=== PATIENT | female | born 1985 ===

== ENCOUNTER 2018-09-13 21:53 | Inpatient (IN) ==
[2018-09-13] MEDS ORDERED: MEPERIDINE 50 MG/1 ML VIAL IV PRN (22:01)
[2018-09-13] MEDS ORDERED: ONDANSETRON 4 MG/2 ML VIAL IV PRN (22:01)
[2018-09-13 22:36] LABS: Basophils % 0.3 % (0.0-0.8); Eosinophils # 0.1 10*3/uL (0.0-0.87); Eosinophils % 0.7 % (0.00-10.9); Hematocrit 30.6 VOL% (35.7-47.0); Hemoglobin 9.5 GM/DL (12.0-16.0); Immature Granulocytes % 0.7 %; Immature Granulocytes Absolute 0.06 #; Lymphocytes # 1.7 10*3/uL (1.4-4.0); Lymphocytes % 19.1 % (21.3-54.2); Mean Corpuscular Hemoglobin 25 PG (27-34); Mean Corpuscular Volume 79.5 FL (87-102); Mean Platelet Volume 12.3 FL (9.6-12.0); Monocytes # 0.6 10*3/uL (0.11-0.8); Monocytes % 6.7 % (1.7-12.7); Neutrophils # 6.5 10*3/uL (1.4-7.4); Neutrophils % 72.5 % (38.7-73.9); Platelet Count 296 T/CUMM (130-400); Red Blood Count 3.85 MC/CUMM (3.8-5.5); Red Cell Distribution Width 15.1 % (9.3-17.3); White Blood Count 8.9 T/CUMM (4-12)
[2018-09-13] MEDS ORDERED: AMPICILLIN INJ 2,000 MG in SODIUM CHLORIDE 0.9% 100 ML IV ONE (22:48)
[2018-09-13 22:51] LABS: Alanine Aminotransferase 12 U/L (13-56); Albumin 2.6 G/DL (3.4-5.0); Alkaline Phosphatase 145 U/L (45-117); Aspartate Amino Transferase 13 U/L (0-37); Bilirubin,Total < 0.39 MG/DL (0.2-1.0); Blood Urea Nitrogen 6 MG/DL (7-18); Glucose 93 MG/DL (74-106); Osmolality,Calculated 276.4 MOS/KG (273-304); Potassium 3.7 MMOL/L (3.5-5.1); Sodium 140 MMOL/L (136-145); Total Protein 7.3 G/DL (6.4-8.3)
[2018-09-13] MEDS: LACTATED RINGERS 1,000 ML IV SCH (23:18)
[2018-09-13] MEDS: AMPICILLIN INJ 2,000 MG in SODIUM CHLORIDE 0.9% 100 ML IV SCH (23:19)
[2018-09-13] MEDS ORDERED: AZITHROMYCIN 250 MG TABLET PO ONE (23:30)
[2018-09-13] MEDS ORDERED: AZITHROMYCIN INJ 1,000 MG in SODIUM CHLORIDE 0.9% 250 ML IV ONE (23:46)
[2018-09-14] MEDS ORDERED: AZITHROMYCIN 250 MG TABLET PO ONE (02:00)
[2018-09-14] MEDS: LACTATED RINGERS 1,000 ML IV SCH ×2 (02:22→08:02)
[2018-09-14] MEDS: AMPICILLIN INJ 2,000 MG in SODIUM CHLORIDE 0.9% 100 ML IV SCH (05:02)
[2018-09-14] MEDS ORDERED: diphenhydrAMINE 50 MG/1 ML VIAL IV PRN (07:21)
[2018-09-14] MEDS ORDERED: ePHEDrine 50 MG/ML AMP IV PRN (07:21)
[2018-09-14] MEDS ORDERED: NALOXONE 0.4 MG/ML VIAL IV PRN (07:21)
[2018-09-14] MEDS ORDERED: PROMETHAZINE 25 MG/1 ML VIAL IM ONE (07:21)
[2018-09-14] MEDS ORDERED: hydrOXYzine HCL 25 MG/1 ML VIAL IM PRN (07:21)
[2018-09-14] MEDS ORDERED: FAMOTIDINE 20 MG/2 ML VIAL IV ONE (07:21)
[2018-09-14] MEDS ORDERED: CITRIC ACID/SODIUM CITRATE 30 ML UDCUP PO ONE (07:21)
[2018-09-14] MEDS ORDERED: OXYTOCIN/LR 20 UNIT/1,000 ML BAG IV ONE (07:25)
[2018-09-14] MEDS ORDERED: fentaNYL 2 MCG/ROPIV 0.2% EPID 100 ML EPIDURAL SCH (07:30)
[2018-09-14] MEDS ORDERED: OXYTOCIN/LR 20 UNIT/1,000 ML BAG IV SCH (07:30)
[2018-09-14] MEDS ORDERED: CARBOPROST TROMETHAMINE 250 MCG/ML AMP IM ONE ×2 (08:22→08:26)
[2018-09-14] MEDS ORDERED: OXYTOCIN/LR 30 UNIT/1,000 ML BAG IV ONE (08:24)
[2018-09-14] MEDS: IBUPROFEN 800 MG TABLET PO PRN (12:47)
[2018-09-15 05:04] LABS: Basophils # 0.1 10*3/uL (0.0-0.2); Basophils % 0.5 % (0.0-0.8); Eosinophils # 0.1 10*3/uL (0.0-0.87); Eosinophils % 0.5 % (0.00-10.9); Hematocrit 26.3 VOL% (35.7-47.0); Hemoglobin 8.1 GM/DL (12.0-16.0); Immature Granulocytes % 0.6 %; Immature Granulocytes Absolute 0.06 #; Lymphocytes # 2.1 10*3/uL (1.4-4.0); Lymphocytes % 19.7 % (21.3-54.2); Mean Corpuscular HGB Conc 30.8 GM/DL (32-36); Mean Corpuscular Hemoglobin 24 PG (27-34); Mean Corpuscular Volume 79.2 FL (87-102); Mean Platelet Volume 12.2 FL (9.6-12.0); Monocytes # 0.7 10*3/uL (0.11-0.8); Monocytes % 6.5 % (1.7-12.7); Neutrophils # 7.7 10*3/uL (1.4-7.4); Neutrophils % 72.2 % (38.7-73.9); Platelet Count 241 T/CUMM (130-400); Red Blood Count 3.32 MC/CUMM (3.8-5.5); Red Cell Distribution Width 14.9 % (9.3-17.3); White Blood Count 10.7 T/CUMM (4-12)
[2018-09-15] MEDS: FERROUS SULFATE 325 MG TABLET PO SCH ×2 (08:13→20:59)
[2018-09-15] MEDS: DOCUSATE SODIUM 100 MG CAPSULE PO SCH ×2 (08:13→20:59)
[2018-09-15] MEDS: IBUPROFEN 800 MG TABLET PO PRN (20:59)
[2018-09-15 22:25] LABS: HIV Antigen/Antibody Result Nonreactive (Nonreactive); Hepatitis B Surface Ab Result Negative
[2018-09-16 08:22] VITALS: BP 117/92
[2018-09-16] MEDS: FERROUS SULFATE 325 MG TABLET PO SCH (09:26)
[2018-09-16] MEDS: DOCUSATE SODIUM 100 MG CAPSULE PO SCH (09:26)
== END 2018-09-16 11:25 | disposition home or self-care (01) | DRG 560 ==
LOC: N.LDOUT 21:53 → N.LD 21:54 → N.OB 09-14 11:39
PROVIDERS: ADMIT Obstetrics & Gynecology; ATTEND Obstetrics & Gynecology

== ENCOUNTER 2018-09-22 08:42 | Inpatient (IN) ==
[2018-09-22] MEDS ORDERED: SODIUM CHLORIDE 0.9% 2,000 ML IV STA (09:06)
[2018-09-22 09:23] LABS: Basophils # 0.1 10*3/uL (0.0-0.2); Basophils % 0.4 % (0.0-0.8); Eosinophils # 0.1 10*3/uL (0.0-0.87); Eosinophils % 0.5 % (0.00-10.9); Hemoglobin 9.9 GM/DL (12.0-16.0); Immature Granulocytes % 0.9 %; Immature Granulocytes Absolute 0.19 #; Lymphocytes # 2.5 10*3/uL (1.4-4.0); Lymphocytes % 12.3 % (21.3-54.2); Mean Corpuscular Hemoglobin 25 PG (27-34); Mean Corpuscular Volume 81.9 FL (87-102); Mean Platelet Volume 11.1 FL (9.6-12.0); Monocytes # 0.9 10*3/uL (0.11-0.8); Monocytes % 4.3 % (1.7-12.7); Neutrophils # 16.5 10*3/uL (1.4-7.4); Neutrophils % 81.6 % (38.7-73.9); Platelet Count 319 T/CUMM (130-400); Red Blood Count 4.03 MC/CUMM (3.8-5.5); Red Cell Distribution Width 15.3 % (9.3-17.3); White Blood Count 20.2 T/CUMM (4-12)
[2018-09-22 09:32] LABS: INR 1.1; PT Patient Result 11.8 SECS; Partial Thromboplastin Time 23.3 SECS (0-40)
[2018-09-22 09:50] LABS: Albumin 3.1 G/DL (3.4-5.0); Bilirubin,Total 0.4 MG/DL (0.2-1.0); Calcium 8.3 MG/DL (8.5-10.1); Osmolality,Calculated 285.1 MOS/KG (273-304); Potassium 3.3 MMOL/L (3.5-5.1); Total Protein 7.3 G/DL (6.4-8.3)
[2018-09-22 09:51] LABS: Apearance,Urine Slightly Hazy (Clear); Bilirubin,Urine 4 mg/dL (Negative); Blood, Urine Negative (Negative); Glucose,Urine (UA) Negative (Negative); Ketones,Urine Negative (Negative); Nitrite,Urine Negative (Negative); Protein,Urine 100 MG/DL; Urine Color Dark yellow (Yellow); Urine Specific Gravity 1.035 (1.001-1.035)
[2018-09-22 09:53] LABS: Hyaline Casts,Urine 453 /LPF (0-3); Mucus,Urine Many /LPF (Occasional); RBC,Urine 28 /HPF (0-4); Squamous Epithelial Cell,Urine Few /HPF (0-10); WBC,Urine 53 /HPF (0-6)
[2018-09-22] MEDS ORDERED: cefOXitin 1,000 MG in SODIUM CHLORIDE 0.9% 100 ML IV STA (10:21)
[2018-09-22 10:23] LABS: Band Neutrophils 1 % (0-10); Hypochromasia 1+; Lymphocytes 12 % (20-55); Segmented Neutrophils 83 % (50-85); Total Cells Counted 100
[2018-09-22 10:24] LABS: Microcytosis 1+
[2018-09-22] MEDS ORDERED: LACTATED RINGERS 1,000 ML IV SCH (12:00)
[2018-09-22] MEDS ORDERED: IBUPROFEN 800 MG TABLET PO PRN ×2 (12:21→14:19)
[2018-09-22] MEDS ORDERED: oxyCODONE/ACETAMINOPHEN 5-325 MG TABLET PO PRN ×2 (12:21)
[2018-09-22] MEDS ORDERED: MEASLES/MUMPS/RUBELLA VACCINE 0.5 ML VIAL SUBCUT ONE ×2 (12:21)
[2018-09-22] MEDS ORDERED: HYDROCORTISONE 2.5% RECTAL CREAM 30 GM TUBE TOP PRN ×2 (12:21→14:19)
[2018-09-22] MEDS ORDERED: ACETAMINOPHEN 325 MG TABLET PO PRN (12:21)
[2018-09-22] MEDS ORDERED: BISACODYL 10 MG SUPP RECTAL PRN ×2 (12:21→14:19)
[2018-09-22] MEDS ORDERED: ONDANSETRON 4 MG/2 ML VIAL IV PRN ×2 (12:21→12:45)
[2018-09-22] MEDS ORDERED: LANOLIN 50% CREAM 0.3 OZ TUBE TOP PRN ×2 (12:21→14:19)
[2018-09-22] MEDS ORDERED: RHO(D) IMMUNE GLOBULIN 300 MCG SYRINGE IM ONE (12:21)
[2018-09-22] MEDS ORDERED: WITCH HAZEL PADS 100/JAR TOP PRN ×2 (12:21→14:19)
[2018-09-22] MEDS ORDERED: OXYTOCIN/LR 20 UNIT/1,000 ML BAG IV ONE ×2 (12:21→12:30)
[2018-09-22] MEDS ORDERED: DIPH/TET/ACEL PERT BOOSTER VACCINE 0.5 ML VIAL IM ONE (12:21)
[2018-09-22] MEDS ORDERED: BENZOCAINE 20%/MENTHOL 0.5% SPRAY 56 GM CAN TOP PRN ×2 (12:21→14:19)
[2018-09-22] MEDS ORDERED: ALBUMIN 5% 12.5 GM/250 ML VIAL IV ONE (12:34)
[2018-09-22] MEDS ORDERED: MIDAZOLAM 2 MG/2 ML VIAL ONE (12:36)
[2018-09-22] MEDS ORDERED: PROPOFOL 200 MG/20 ML VIAL IV ONE (12:36)
[2018-09-22] MEDS ORDERED: SEVOFLURANE 1 UNIT/15 MINUTE INH ONE (12:36)
[2018-09-22] MEDS ORDERED: fentaNYL 100 MCG/2 ML VIAL ONE (12:37)
[2018-09-22] MEDS ORDERED: PHENYLEPHRINE 1 MG/10 ML SYRINGE IV ONE (12:38)
[2018-09-22] MEDS ORDERED: SUCCINYLCHOLINE 200 MG/10 ML VIAL ONE (12:38)
[2018-09-22] MEDS ORDERED: ONDANSETRON 4 MG/2 ML VIAL ONE (12:38)
[2018-09-22] MEDS ORDERED: LACTATED RINGERS 1,000 ML IV ONE (12:38)
[2018-09-22] MEDS ORDERED: DEXAMETHASONE 4 MG/1 ML VIAL ONE (12:38)
[2018-09-22] MEDS ORDERED: ROCURONIUM 100 MG/10 ML VIAL IV ONE (12:38)
[2018-09-22] MEDS ORDERED: ePHEDrine 50 MG/ML AMP ONE (12:38)
[2018-09-22] MEDS ORDERED: KETOROLAC 30 MG/1 ML VIAL ONE (12:38)
[2018-09-22] MEDS ORDERED: ALBUMIN 5% 12.5 GM in PREMIX 1 EACH IV ONE (12:45)
[2018-09-22 12:52] LABS: Hemoglobin 7.2 GM/DL (12.0-16.0)
[2018-09-22] MEDS ORDERED: OXYTOCIN/LR 30 UNIT/1,000 ML BAG IV ONE (12:54)
[2018-09-22] MEDS ORDERED: SODIUM CHLORIDE 0.9% 1,000 ML IV PRN (13:27)
[2018-09-22] MEDS: DOCUSATE SODIUM 100 MG CAPSULE PO SCH (20:15)
[2018-09-22] MEDS: FERROUS SULFATE 325 MG TABLET PO SCH (20:15)
[2018-09-23] MEDS ORDERED: OXYTOCIN/LR 20 UNIT/1,000 ML BAG IV ONE (02:21)
[2018-09-23 04:59] LABS: Basophils % 0.3 % (0.0-0.8); Eosinophils % 0.1 % (0.00-10.9); Hematocrit 21.3 VOL% (35.7-47.0); Hemoglobin 6.9 GM/DL (12.0-16.0); Immature Granulocytes % 0.5 %; Immature Granulocytes Absolute 0.04 #; Lymphocytes # 2.1 10*3/uL (1.4-4.0); Lymphocytes % 27.5 % (21.3-54.2); Mean Corpuscular HGB Conc 32.4 GM/DL (32-36); Mean Corpuscular Hemoglobin 26 PG (27-34); Mean Corpuscular Volume 81.3 FL (87-102); Mean Platelet Volume 11.5 FL (9.6-12.0); Monocytes # 0.5 10*3/uL (0.11-0.8); Monocytes % 6.7 % (1.7-12.7); Neutrophils # 5.1 10*3/uL (1.4-7.4); Neutrophils % 64.9 % (38.7-73.9); Platelet Count 176 T/CUMM (130-400); Red Blood Count 2.62 MC/CUMM (3.8-5.5); Red Cell Distribution Width 15.5 % (9.3-17.3); White Blood Count 7.8 T/CUMM (4-12)
[2018-09-23 07:58] LABS: Hematocrit 21.9 VOL% (35.7-47.0); Hemoglobin 6.9 GM/DL (12.0-16.0)
[2018-09-23] MEDS: DOCUSATE SODIUM 100 MG CAPSULE PO SCH (08:51)
[2018-09-23] MEDS: FERROUS SULFATE 325 MG TABLET PO SCH (08:51)
[2018-09-23] MEDS ORDERED: SODIUM CHLORIDE 0.9% 1,000 ML IV PRN (09:10)
[2018-09-23 16:57] VITALS: BP 112/62
== END 2018-09-23 16:30 | disposition home or self-care (01) | DRG 544 ==
LOC: N.ED 08:42 → N.OB 11:16 → N.ED 11:16 → N.OB 14:19
PROVIDERS: ADMIT Obstetrics & Gynecology; ATTEND Obstetrics & Gynecology